=== PATIENT | male | born 1995 | race American Indian/Alaskan Native ===

== ENCOUNTER 2020-04-27 16:56 | Emergency (ER) | payer SELFPAY ==
[2020-04-27 17:17] VITALS: BP 137/85
[2020-04-27] MEDS ORDERED: KETOROLAC 10 MG TAB PO ONE (18:56)
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
== END 2020-04-27 21:00 | disposition home or self-care (01) ==
LOC: ED 16:56
DX: S16.1XXA Strain of muscle, fascia and tendon at neck level, initial encounter (principal); S29.012A Strain of muscle and tendon of back wall of thorax, initial encounter; Z79.899 Other long term (current) drug therapy; V49.59XA Passenger injured in collision with other motor vehicles in traffic accident, initial encounter; Y93.89 Activity, other specified; Y92.410 Unspecified street and highway as the place of occurrence of the external cause; Y99.8 Other external cause status
CPT/HCPCS: 72040; 72072